=== PATIENT | male | born 1990 | race Caucasian/White ===

== ENCOUNTER 2019-10-05 03:46 | Emergency (ER) | payer SELFPAY ==
[~2019-10-05] VITALS: Ht 172.7 cm; Wt 117.9 kg
[2019-10-05 03:52] VITALS: BP 142/96; Ht 172.7 cm; Wt 117.9 kg
== END 2019-10-05 05:02 | disposition other institution (70) ==
LOC: EDBD 03:46 → ED 03:46
DX: R51 Headache (principal); Y04.8XXA Assault by other bodily force, initial encounter; Y93.89 Activity, other specified; Y92.89 Other specified places as the place of occurrence of the external cause; Y99.8 Other external cause status

== ENCOUNTER 2019-10-05 03:46 | Emergency (ER) | payer OTHER | END 2019-10-05 05:02 | disposition other institution (70) | LOC: ED 03:46 | DX: Z02.89 Encounter for other administrative examinations (principal) ==